=== PATIENT | female | born 1955 | race Caucasian/White ===

== ENCOUNTER → 2021-04-20 | Outpatient (CLI) | payer BC | LOC: CT 10:34 | DX: C44.329 Squamous cell carcinoma of skin of other parts of face (principal) | CPT/HCPCS: 70491; 71260; Q9967 ==

== ENCOUNTER → 2021-06-08 | Outpatient (CLI) | payer MEDICARE, BC ==
--- NOTE | 2021-06-08 11:20 | NUR ---
Single lumen PICC line inserted in the left basilic vein, cut to 45 cm. US guidance used to obtain venous access. Aspirates and flushes easily. 3CG technology used to confirm PICC tip in SVC. Upper arm circ = 27 cm, lower arm circ = 26 cm.
== END ==
LOC: OPSV 08:00
DX: C44.329 Squamous cell carcinoma of skin of other parts of face (principal)

== ENCOUNTER → 2021-11-25 | Outpatient (CLI) | payer MEDICARE, BC ==
[~2021-11-25] MED LIST: COZAAR 50MG TAB50 MG PO; WELLBUTRIN SR150 M1 PO
== END ==
LOC: MRI 10:30
DX: C44.329 Squamous cell carcinoma of skin of other parts of face (principal); G31.9 Degenerative disease of nervous system, unspecified
CPT/HCPCS: 70553; A9577

== ENCOUNTER → 2021-11-28 | Day surgery (SDC) | payer MEDICARE, BC ==
[~2021-11-28] VITALS: Ht 170.2 cm; Wt 57.2 kg
== END | disposition home or self-care (01) ==
LOC: OR 06:44
DX: C44.329 Squamous cell carcinoma of skin of other parts of face (principal); C77.9 Secondary and unspecified malignant neoplasm of lymph node, unspecified; C78.00 Secondary malignant neoplasm of unspecified lung; I10 Essential (primary) hypertension; E78.5 Hyperlipidemia, unspecified; F17.210 Nicotine dependence, cigarettes, uncomplicated; Z88.1 Allergy status to other antibiotic agents; Z79.899 Other long term (current) drug therapy
CPT/HCPCS: 71045; 77001; C1769; C1788; J0690; J1100; J1642; J1644; J2001; J2405; J2704; J3010; J7040